=== PATIENT | male | born 1960 | race Caucasian/White ===

== ENCOUNTER 2021-12-28 09:32 | Emergency (ER) | payer BC ==
[~2021-12-28] VITALS: Ht 170.2 cm; Wt 90.7 kg
[~2021-12-28 09:32] MED LIST: ASA; ATOR40TA PO; CLOP75 PO; COLE1 PO; COLE625 PO; FISH OIL 1,0001 EAC1; FISH1000 PO; LIPITOR; LISINOPRIL; METO25ER PO; PLAVIX; Protonix40 M1 PO; SILD25T PO; Toprol Xl50 MG PO
[2021-12-28] MEDS ORDERED: HYDR1TAB94 PO (10:13)
[2021-12-28] MEDS ORDERED: CYCL10 PO (10:13)
== END 2021-12-28 10:19 | disposition home or self-care (01) ==
LOC: ER 09:32
DX: S39.012A Strain of muscle, fascia and tendon of lower back, initial encounter (principal); X58.XXXA Exposure to other specified factors, initial encounter; Z79.899 Other long term (current) drug therapy; I25.10 Atherosclerotic heart disease of native coronary artery without angina pectoris; I25.2 Old myocardial infarction
CPT/HCPCS: 99283